=== PATIENT | female | born 1985 | race Caucasian/White ===

== ENCOUNTER 2020-10-07 08:40 | Emergency (ER) | payer OTHER ==
--- NOTE | 2020-10-07 08:58 | EDM.PDOC ---
ED HPI GENERAL MEDICAL PROBLEM - General Chief Complaint: Upper Extremity Injury/Pain Stated Complaint: rt hand/wrist injury Time Seen by Provider: 10/07/20 08:49 - History of Present Illness INITIAL COMMENTS - FREE TEXT/NARRATIVE: History of present illness: [] The patient yesterday was doing some cheerleader moves. She was trying to stand another lady's thigh and they fell. She bent her right hand and the other individual fell on top of her right hand. She has pain in the right hand and no other injury except a small scratch on the left side of her face. In severe worse with movement or touching. The swelling associated. There is no numbness tingling or discoloration distal. Elbow and shoulder uninvolved spine is uninvolved. Review of systems: He and her are trying to become . This will not enter into the clinical picture today because we will shield her abdomen and take care of her hand x-ray. She does not feel like she will need narcotic prescription. Will defer any further testing other than x-ray her hand and take care of the immediate problem. As per history of present illness and below otherwise all systems reviewed and negative. Past medical history: As per history of present illness and as reviewed below otherwise noncontributory. Surgical history: As per history of present illness and as reviewed below otherwise noncontributory. Social history: No reported history of drug or alcohol abuse. Family history: As per history of present illness and as reviewed below otherwise noncontributory. Physical exam: Constitutional - well developed, well-nourished and in no acute distress HEENT - normocephalic, no evidence of trauma - external nose and mouth normal - no mass in neck and no JVD - mucosae moist EYES - full EOM, PERRL, no icterus - no evidence of inflammation, injection, or drainage Respiratory - no respiratory distress, equal bilateral expansion Musculoskeletal Sushant swelling of the entire hand in the area of the metacarpals. MPJ is the distal extent and the IPJ's are nontender. Capillary refill normal distally. Elbow and shoulder are uninvolved. This no gross deformity of long bones or joints - no tenderness, swelling or edema Neurologic - Alert and oriented times four - CN II-XII grossly intact - motor sensory and coordination symmetrically normal Psychiatric - appropriate mood and affect with normal thought content Hematologic - No petechiae or purpura - mucosa appropriate color and sclera not pale - normal nail bed color and refill Integument - no rash or evidence of trauma - normal turgor Diagnostics: [] Therapeutics: [] Impression: [] Plan: [] Definitive disposition and diagnosis as appropriate pending reevaluation and review of above. Right wrist Pain Score (Numeric/FACES): 7 - Related Data Allergies Allergy/AdvReac Type Severity Reaction Status Date / Time No Known Allergies Allergy Verified 10/07/20 08:55 Home Meds: Home Meds . [No Known Home Meds] 10/07/20 [History] Past Medical History - Past Health History Medical/Surgical History: Denies Medical/Surgical History H[employer] History: Reports: Musculoskeletal History: Reports: Fracture - Infectious Disease History Infectious Disease History: Reports: Chicken Pox, Other (See Below) Other Infectious Disease History: swine flu Social & Family History - Family History HEENT: Reports: Cataract Cardiac: Reports: Hypertension Psychiatric: Reports: Anxiety, Depression Endocrine/Metabolic: Reports: Diabetes, type II Oncologic: Reports: Prostate Review of Systems - Review of Systems Review Of Systems: Comprehensive ROS is negative, except as noted in HPI. ED EXAM, GENERAL - Physical Exam Exam: See Below Free Text/Narrative:: My physical exam as in the HPI Course - Vital Signs Text/Narrative:: On Xray I do not see a fracture or malalignment. The neurovascular structures are intact. I feel the patient can ice elevate and limit use of the hand and should be discharged in satisfactory condition. Last Recorded V/S: Last Vital Signs Temp 36.6 C 10/07/20 08:52 Pulse 102 H 10/07/20 08:52 Resp 18 10/07/20 08:52 BP 92/63 10/07/20 08:52 Pulse Ox 97 10/07/20 08:52 - Orders/Labs/Meds Orders: Active Orders 24 hr Category Date Time Status Hand Comp Min 3V Rt [CR] Stat Exams 10/07/20 08:55 Taken Departure - Departure Time of Disposition: 09:15 Disposition: Home, Self-Care 01 Condition: Good Clinical Impression: Contusion of hand, right, Sprain of hand, right - Discharge Information Instructions: Hand Contusion, [id number] Referrals: PCP,None [Primary Care Provider] - Forms: ED Department Discharge Additional Instructions: [facility] - Primary Care [address] [place] [address] [facility] [address] [place] [address] The following information is given to patients seen in the emergency department who are being discharged to home. This information is to outline your options for follow-up care. We provide all patients seen in our emergency department with a follow-up referral. The need for follow-up, as well as the timing and circumstances, are variable depending upon the specifics of your emergency department visit. If you don't have a primary care physician on staff, we will provide you with a referral. We always advise you to contact your personal physician following an emergency department visit to inform them of the circumstance of the visit and for follow-up with them and/or the need for any referrals to a consulting specialist. The emergency department will also refer you to a specialist when appropriate. This referral assures that you have the opportunity for follow-up care with a specialist. All of these measure are taken in an effort to provide you with optimal care, which includes your follow-up. Under all circumstances we always encourage you to contact your private physician who remains a resource for coordinating your care. When calling for follow-up care, please make the office aware that this follow-up is from your recent emergency room visit. If for any reason you are refused follow-up, please contact the [facility] Emergency Department at and asked to speak to the emergency department charge nurse. Sepsis Event Note (ED) - Focused Exam Vital Signs: Vital Signs Temp Pulse Resp BP Pulse Ox 10/07/20 08:52 36.6 C 102 H 18 92/63 97 - My Orders Last 24 Hours: My Active Orders 10/07/20 08:55 Hand Comp Min 3V Rt [CR] Stat - Assessment/Plan Last 24 Hours: My Active Orders 10/07/20 08:55 Hand Comp Min 3V Rt [CR] Stat
--- NOTE | 2020-10-07 09:33 | CR ---
HISTORY: Right hand injury. TECHNIQUE: Three views of the right hand. COMPARISON: No prior. FINDINGS: No acute fracture. Ulnar minus variance. Alignment otherwise maintained. Joint spaces are maintained. No radiopaque foreign body or soft tissue gas. No erosive change or chondrocalcinosis. IMPRESSION: No acute fracture. Dictated by Fabricio Bello MD @ 10/07/2020 9:30:55 AM Dictated by: Fabricio Bello MD @ 10/07/2020 09:31:01 (Electronically Signed)
[2020-10-07 09:36] VITALS: BP 103/65; PULSE 89
== END 2020-10-07 09:36 | disposition home or self-care (01) ==
LOC: MW.ED 08:40
DX: S63.91XA Sprain of unspecified part of right wrist and hand, initial encounter (principal); W50.0XXA Accidental hit or strike by another person, initial encounter; Y93.45 Activity, cheerleading
CPT/HCPCS: 73130-26-RT; 73130-RT; 99283; 99283-25